=== PATIENT | female | born 1965 | race Caucasian/White ===

== ENCOUNTER → 2021-03-15 | Outpatient (CLI) | payer BC ==
[~2021-03-15] MED LIST: ASPIRIN81 MG PO; FOLGARD TABLET1 EACH PO; IBUPROFEN800 MG PO; LEVAQUIN250 MG PO; MAGNESIUM27 MG PO; NORCO 5-325 TA1 EACH PO; NORVASC 5 MG TAB5 MG PO; OMNICEF 300 MG300 MG PO; POTASSIUM 25 M25 MEQ PO
== END ==
LOC: HEART 5 07:38
DX: R07.9 Chest pain, unspecified (principal)
CPT/HCPCS: 78452; A9502; J2785